=== PATIENT | female | born 1960 ===

== ENCOUNTER 2017-07-24 12:02 | Outpatient (CLI) | payer OTHER | END 2017-07-24 15:24 | disposition home or self-care (01) | LOC: MRI 12:02 | DX: G93.89 Other specified disorders of brain (principal); R20.0 Anesthesia of skin | CPT/HCPCS: 70551 ==

== ENCOUNTER 2019-01-23 14:35 | Outpatient (CLI) | payer OTHER | END 2019-01-23 15:21 | disposition home or self-care (01) | LOC: LAB 14:35 | DX: R10.2 Pelvic and perineal pain (principal) ==

== ENCOUNTER 2019-02-17 07:54 | Outpatient (CLI) | payer OTHER | END 2019-02-17 17:00 | disposition home or self-care (01) | LOC: TOM 07:54 | DX: R10.2 Pelvic and perineal pain (principal) ==